=== PATIENT | male | born 1950 | race Caucasian/White ===

== ENCOUNTER 2020-06-28 10:40 | Outpatient (REF) | payer MEDICARE, MEDICAID, SELFPAY ==
[2020-06-28 11:42] LABS: Alanine Aminotransferase 20 U/L (0-40); Albumin Level 4.1 g/dL (3.5-5.0); Alkaline Phosphatase 70 U/L (39-117); Aspartate Amino Transferase 19 U/L (5-37); Bilirubin Direct < 0.2 mg/dL (0.0-0.5); Bilirubin Total 0.3 mg/dL (0.0-1.0); Total Protein 6.8 g/dL (6.5-8.0)
[2020-06-28 12:08] LABS: Carbamazepine Tegretol 5.4 mcg/mL (5.0-12.0)
== END 2020-06-28 10:41 | disposition home or self-care (01) ==
LOC: HO.LAB 10:40
PROVIDERS: Visit Provider Psychiatry & Neurology Neurology
DX: G40.909 Epilepsy, unspecified, not intractable, without status epilepticus (principal); Z79.899 Other long term (current) drug therapy
CPT/HCPCS: 36415; 80076; 80156

== ENCOUNTER 2021-10-25 14:05 | Outpatient (REF) | payer MEDICARE, MEDICAID, SELFPAY ==
[2021-10-25 15:59] LABS: Carbamazepine Tegretol 5.4 mcg/mL (5.0-12.0)
== END 2021-10-25 14:06 | disposition home or self-care (01) ==
LOC: HO.LAB 14:05
PROVIDERS: Visit Provider Psychiatry & Neurology Neurology
DX: G40.909 Epilepsy, unspecified, not intractable, without status epilepticus (principal); Z79.899 Other long term (current) drug therapy
CPT/HCPCS: 36415; 80156

== ENCOUNTER 2022-06-05 10:48 | Outpatient (REF) | payer MEDICARE, MEDICAID, SELFPAY ==
[2022-06-05 11:54] LABS: Alanine Aminotransferase 14 U/L (0-40); Alkaline Phosphatase 76 U/L (39-117); Aspartate Amino Transferase 16 U/L (5-37); Bilirubin Direct < 0.2 mg/dL (0.0-0.5); Bilirubin Total 0.4 mg/dL (0.0-1.0); Total Protein 6.6 g/dL (6.5-8.0)
== END 2022-06-05 10:49 | disposition home or self-care (01) ==
LOC: HO.LAB 10:48
PROVIDERS: PCP Internal Medicine; Visit Provider Psychiatry & Neurology Neurology
DX: G40.909 Epilepsy, unspecified, not intractable, without status epilepticus (principal); Z79.899 Other long term (current) drug therapy
CPT/HCPCS: 36415; 80076; 80156

== ENCOUNTER 2024-11-25 10:52 | Outpatient (AMB) | payer MEDICARE, MEDICAID, SELFPAY ==
--- NOTE | 2024-11-25 11:11 | A.OFFVIS_ITS ---
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 He did not have any seizure like episode. [facility], [facility] Medical History (Updated 11/25/24 @ 11:15 by Alan Echols MD) Chronic static encephalopathy Seizure disorder Agenesis of corpus callosum Review of Systems Const Details: No seizure or any new symptoms since he was last year. ? Physical Exam Neuro Other: He is alert and awake but not communicating. He was making an eye contact and smiling. He was walking in a slightly wide base gait was to posture. Assessment & Plan Assessment & Plan (1) Seizure disorder: Code(s): G40.909 - Epilepsy, unspecified, not intractable, without status epilepticus Category: Medical (2) Chronic static encephalopathy: Code(s): G93.49 - Other encephalopathy Category: Medical (3) Agenesis of corpus callosum: Code(s): Q04.0 - Congenital malformations of corpus callosum Category: Medical Plan Impression: 1. 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 Agenesis of corpus callosum 3. Cognitive and physical disability from above 4. Seizure disorder in remission Recommendations: 1. Carbamazepine 100 mg per 5 mL, 5 mL, by mouth 3 times a day 2. CBC, LFTs, carbamazepine level Orders: Orders Complete Blood Count Auto Diff Today G40.909 - Epilepsy, unspecified, not intractable, without status epilepticus Liver Panel Today G40.909 - Epilepsy, unspecified, not intractable, without status epilepticus Carbamazepine Tegretol Today G40.909 - Epilepsy, unspecified, not intractable, without status epilepticus Coding Level of Care Code Tele Est Pt Level 4 (49346) Diagnoses Seizure disorder G40.909 Chronic static encephalopathy G93.49 Agenesis of corpus callosum Q04.0
--- OUTSIDE RECORDS SUMMARY | 2024-11-25 11:51 | XMS_ITS | Encounter Summary ---
Author Organization [facility] Address [address] [place] [address] Care Team Providers Care Biodiesel Plant Superintendent Name Role Phone Zoie Fowler DO Primary Care Provider [phone] Reason for Visit * Reason Onset Date Comments Request For Order(s) 11/05/2024 [facility] Encounter Details Date Type Department Care Team (Late Contact Info) Description 11/05/2024 Telephone Internal Medicine - [place] [address] [facility] [place] [address] Zoie Fowler DO [address] [place] [address] Request For Order(s) ([facility]) Social History Tobacco Use Types Packs/Day Years Used Date Smoking Tobacco: Never Smokeless Tobacco: Never Alcohol Use Standard Drinks/Week Comments No 0 (1 standard drink = 0.6 oz pur e alcohol) Sex and Gender Information Value Date Recorded Sex Assigned at Not on file Legal Sex Male 4:25 AM EST Gender Identity Not on file Sexual Orientation Not on file documented as of this encounter Progress Notes * Chin Campa - 11/05/2024 2:15 PM EDT Orders from [facility] placed in [facility] DO [facility] [place]. Please complete and fax back to [phone]. Thank you. documented in this encounter Plan of Treatment Upcoming Encounters Date Type Department Care Team (Late Contact Info) Description 02/24/2025 9:45 AM EDT Office Visit Orthopedic Surgery - [place] [address] [phone] Dorian Puga, DPKeyshawn [address] [address] documented as of this encounter Visit Diagnoses Not on filedocumented in this encounter Care Teams Biodiesel Plant Superintendent Relationship Specialty Start Date End Date Zoie Fowler DO [facility] [place] [address] PCP - General 02/06/24 documented as of this encounter
--- OUTSIDE RECORDS SUMMARY | 2024-11-25 11:51 | XMS_ITS | Patient Health Record ---
Author Organization [facility] Address [address] [place] [address] Care Team Providers Care Drying Can Worker Name Role Phone Deandre Arora Primary Care Provider Unavailjose e Bharat Thornton Unavailable [phone] Reason For Referral No Information Medications Medication SIG (Take, Route, Frequency, Duration) Notes Start Date End Date Status TEGretol 100MG 1 tablet Orally Thre e times a day Active Tylenol 650MG EVERY 4 HOURS Oral A S NEEDED FOR PAIN Active Antacid 1000 MG 1 tablet Orally ONCE A DAY Active Vitamin D 2000 UNIT 1 tablet Orally Once a day Active Culturelle INTESTINAL HEALTH 1 CAP Orally TWICE A DAY Active Aspirin Adult Low Dose 81 MG 1 tablet Or ally Once a day Active Multivitamins 1 1 CAPSULE Orally ONC E A DAY Active Melatonin 6MG 1 tablet at bedtime as needed with food Orally AT HS Active Immunizations Vaccine Route Administration Date Status Comme nts Flu vaccine no Preserv 3 and > Unknown 12/04/2014 Admin istered Problems Problem Type SNOMED Code ICD Code Onset Dates Problem Status W/U Status Risk Notes Problem [id number] Encounter for screening for malignant neoplasm of colon (Z12.11) Active confirmed Problem Encounter for screening for malignant neoplasm of rectum (Z12.12) Active confirmed Problem [id number] Long-term use of aspirin therapy (Z79.82) Active confirmed Plan Of Treatment Pending Test Test Name Order Date GI BIOPSY 08/29/2015 Future Test Test Name Order Date COLONOSCOPY 05/24/2015 Insurance Providers Payer Name Payer Address Payer Phone Subscriber Number Group Number Insured Name Patient Relationship to Insured Coverage Start Date Coverage End Date MEDICARE OF [facility] [address] [id number] SAVANNAH ROA Self - patient is the insured [employer] [facility] [address] [place] [address] [phone] [id number] SAVANNAH ROA Self - patient is the insured Medical (General) History Medical History History ICD Code HEARING AIDS LIMITED COGNITIVE CAPACITY-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
== END 2024-11-25 11:35 | disposition home or self-care (01) ==
LOC: HO.HSM 10:52
PROVIDERS: PCP Internal Medicine; Visit Provider Psychiatry & Neurology Neurology
DX: G40.909 Epilepsy, unspecified, not intractable, without status epilepticus (principal); G93.49 Other encephalopathy; Q04.0 Congenital malformations of corpus callosum
CPT/HCPCS: 99214

== ENCOUNTER 2024-11-25 10:52 | Outpatient (REF) | payer MEDICARE, MEDICAID, SELFPAY ==
[2024-11-25 12:26] LABS: MANUAL DIFF FLAG NO
[2024-11-25 12:55] LABS: Hematocrit 46.7 % (42.0-52.0); Hemoglobin 15.7 g/dl (14.0-18.0); Imm Gran Abs Auto 0.01 X10*3/uL (0.00-0.03); Imm Gran Pct Auto 0.2 % (0.0-0.4); Lymphocytes Absolute Auto 1.3 X10*3/uL (1.2-4.9); Mean Corpuscular HGB Conc 33.6 g/dl (31.0-36.0); Mean Corpuscular Hemoglobin 30.5 pg (27.0-33.0); Mean Corpuscular Volume 90.7 fL (80.0-98.0); NRBC Abs Auto 0.000 X10*3/uL (0.0-0.012); NRBC Pct Auto 0.0 /100WBC (0.0-0.2); Platelet Count 241 X10*3/uL (160-400); Red Blood Count 5.15 X10*6/uL (4.60-5.80); White Blood Count 6.0 X10*3/uL (4.8-10.8)
[2024-11-25 14:11] LABS: Alanine Aminotransferase 27 U/L (0-40); Albumin Level 4.2 g/dL (3.5-5.0); Alkaline Phosphatase 83 U/L (39-117); Aspartate Amino Transferase 25 U/L (5-37); Total Protein 7.0 g/dL (6.5-8.0)
[2024-11-25 14:13] LABS: Carbamazepine Tegretol 7.0 mcg/mL (5.0-12.0)
== END 2024-11-25 10:53 | disposition home or self-care (01) ==
LOC: HO.LAB 10:52
PROVIDERS: PCP Internal Medicine; Visit Provider Psychiatry & Neurology Neurology
DX: G93.49 Other encephalopathy (principal); Q04.0 Congenital malformations of corpus callosum; G40.909 Epilepsy, unspecified, not intractable, without status epilepticus
CPT/HCPCS: 36415; 80076; 80156; 85025; 99212